=== PATIENT | female | born 1975 | race Caucasian/White ===

== ENCOUNTER → 2017-07-20 | Outpatient (CLI) | payer OTHER | END | disposition home or self-care (01) | LOC: KCIC MAMMO 09:57 | DX: Z12.31 Encounter for screening mammogram for malignant neoplasm of breast (principal) | CPT/HCPCS: 77063; 77067 ==

== ENCOUNTER → 2017-07-27 | Outpatient (CLI) | payer OTHER | END | disposition home or self-care (01) | LOC: KCIC US 12:53 | DX: N63.10 Unspecified lump in the right breast, unspecified quadrant (principal) | CPT/HCPCS: 76641 ==

== ENCOUNTER → 2017-11-28 | Outpatient (CLI) | payer OTHER ==
--- NOTE | 2017-11-28 11:35 | KCIC ---
PQRS Compliance Statement: One or more of the following individualized dose reduction techniques were utilized for this examination: 1. Automated exposure control 2. Adjustment of the mA and/or kV according to patient size 3. Use of iterative reconstruction technique CT abdomen/pelvis without contrast 11/28/2017 10:30 AM INDICATION: Generalized abdominal pain, endometriosis COMPARISON: None available TECHNIQUE: Multiple axial CT images of the abdomen and pelvis were obtained without intravenous contrast. Coronal and sagittal reformats are provided. FINDINGS: Visualized portions of the lung bases are clear. Heart size is within normal limits. Evaluation of the solid abdominal viscera is limited by lack of intravenous contrast. No suspicious hepatic masses are identified. Calcifications within the liver and spleen are likely sequela prior granulomatous exposure. Spleen, bilateral adrenal glands, and pancreas are otherwise normal normal in appearance. Gallbladder is present without adjacent inflammatory changes. The abdominal aorta is normal in course and caliber. There are no pathologically enlarged lymph nodes in the abdomen and pelvis. There is no abdominal free fluid. There is no free intraperitoneal air. There may be a 2 mm calculus at the left ureterovesicular junction (series 2, image 70). There is no hydronephrosis. No calculi are identified within the kidneys. The cecum is identified deep within the pelvis. The appendix is not definitively visualized. No pericecal inflammatory changes are identified. There is a moderate amount of stool identified throughout the colon. No evidence for bowel obstruction or inflammation. No suspicious adnexal masses visualized. Follicular changes are identified in the right adnexa with a dominant follicle measuring 2.2 cm. No suspicious osseous abnormalities visualized. Urinary bladder is predominantly decompressed. Gas is suspected within the endometrium, nonspecific. IMPRESSION: 1. There may be a 2 mm calculus at the left ureterovesicular junction. There is no associated hydroureteronephrosis. Alternatively, this may represent a phlebolith as there are additional phleboliths present. Correlate with patient's symptoms. 2. Appendix is not definitively visualized with the cecum residing deep within the pelvis. No adjacent inflammatory changes are present. No evidence for bowel obstruction or inflammation. 3. Dominant follicle is noted in the right adnexa measuring 2.2 cm. 4. Gas is suspected within the endometrium which is nonspecific. Electronically signed by: Gena Gordillo MD (11/28/2017 11:31 AM) [id number]
== END | disposition home or self-care (01) ==
LOC: KCIC CT 10:13
PROVIDERS: ATTEND Family Medicine
DX: N80.8 Other endometriosis (principal)
CPT/HCPCS: 74176

== ENCOUNTER → 2018-05-29 | Outpatient (CLI) | payer OTHER ==
[~2018-05-29] MED LIST: GADOBUTROL 7.5 MMOL/7.5 ML VIAL IV ONE
--- NOTE | 2018-05-29 10:21 | RAD ---
MRI of the Brain without and with Contrast 05/29/2018 Clinical History: Worsening neuropathy in hands and feet since the last year. Technique: Unenhanced T1-weighted and FLAIR sagittal and axial and gradient echo, T2-weighted and diffusion-weighted axial images of the brain were obtained. After the intravenous administration of 4.5 cc of Gadavist, enhanced T1-weighted axial and coronal images of the brain were obtained. Findings: The ventricles and sulci are within normal limits in size and configuration. Patchy and several small focal areas of abnormally increased signal intensity are seen within the periventricular and subcortical white matter of both cerebral hemispheres on the FLAIR and T2-weighted images. These measure 2 mm to 5 mm in size. Their MRI appearance is nonspecific. They are felt to most likely reflect areas of minimal small vessel ischemic disease. They can be seen in patients with a history of migraine headaches. Conceivably they could be seen in the setting of a demyelinating disorder. No acute parenchymal abnormality is seen. No abnormal area of contrast enhancement is seen. No extra-axial fluid collection is noted. There is no MRI evidence of acute ischemia/infarction. The paranasal sinuses are essentially clear. There are minimal mastoid effusions, right greater than left. Normal flow voids are seen within the major vascular structures surrounding the brain parenchyma. Impression: No acute parenchymal abnormality is seen. Electronically signed by: Ilya Doty MD (05/29/2018 10:16 AM) [email or web address]
== END | disposition home or self-care (01) ==
LOC: MRI 08:40
PROVIDERS: ATTEND Psychiatry & Neurology Neurology
DX: G35 Multiple sclerosis (principal)
CPT/HCPCS: 70553; A9585

== ENCOUNTER → 2018-07-04 | Outpatient (CLI) | payer OTHER ==
[~2018-07-04] MED LIST changes: +CONTRAST GIVEN. MC PRN; -GADOBUTROL 7.5 MMOL/7.5 ML VIAL IV ONE; +IOHEXOL 300 MG/ML 100ML VIAL. IV ONE
--- NOTE | 2018-07-04 12:35 | RAD ---
EXAM: Abdomen and pelvis CT urogram with and without intravenous contrast. HISTORY: Nephrolithiasis. TECHNIQUE: Computed tomographic images of the abdomen and pelvis were obtained prior to and following the administration of 75 cc Omnipaque 300 intravenous contrast. Multiplanar reformatting was performed. *One or more of the following individualized dose reduction techniques were utilized for this examination: 1. Automated exposure control. 2. Adjustment of the mA and/or kV according to patient size. 3. Use of iterative reconstruction technique. COMPARISON: 11/28/2017. FINDINGS: Evaluation of the lower thorax is unremarkable. There is no suspicious hepatic lesion. The gallbladder, pancreas and and right adrenal gland are unremarkable. There is slight thickening of the medial limb of the left adrenal gland, without a discrete nodule. There are granulomas within an otherwise unremarkable spleen. The stomach is distended with recently ingested fluid. There is no evidence of nephrolithiasis there is no evidence of obstructive uropathy. There is a small calcific lesion along the course of the right distal ureter. The ureter is not opacified in this location. However, the absence of ureteral dilatation suggests that this is a phlebolith rather than distal ureteral stone. No solid or cystic renal lesion is seen. No urothelial lesion is seen. The bladder is unremarkable. No abnormally thickened or dilated loop of bowel is seen. There is moderate colonic stool. There is no lymphadenopathy. There is no suspicious osseous lesion. IMPRESSION: 1. No evidence of nephroureterolithiasis, obstructive uropathy or intrinsic urothelial lesion. 2. No acute abdominal or pelvic finding. Electronically signed by: Diana Malcolm MD (07/04/2018 12:32 PM) [email or web address]
== END | disposition home or self-care (01) ==
LOC: CT 09:29
PROVIDERS: ATTEND Urology
DX: N28.89 Other specified disorders of kidney and ureter (principal); Z87.442 Personal history of urinary calculi
CPT/HCPCS: 74178; Q9967

== ENCOUNTER → 2019-04-30 | Outpatient (CLI) | payer MEDICAID, OTHER ==
--- NOTE | 2019-04-30 07:59 | RAD ---
EXAM: RIGHT UPPER QUADRANT ULTRASOUND. HISTORY: Right upper quadrant pain. COMPARISON: None. FINDINGS: Sonographic evaluation of the right upper quadrant was performed. The liver appears normal in parenchymal echotexture. There are no focal lesions. The gallbladder is unremarkable without evidence of stones, wall thickening or pericholecystic fluid. There is no sonographic Gastelum sign. The common duct measures 3 mm. The visualized portions of the head and body of the pancreas reveal no abnormality. The right kidney measures 9.6 cm. Cortical thickness and echogenicity are preserved. There is no hydronephrosis. The visualized portions of the abdominal aorta and inferior vena cava are grossly patent and normal in caliber. IMPRESSION: 1. Unremarkable examination of the right upper quadrant. Electronically signed by: Michelle Martin MD (04/30/2019 7:56 AM) [id number]
== END | disposition home or self-care (01) ==
LOC: US 06:47
PROVIDERS: ATTEND Family Medicine
DX: R10.11 Right upper quadrant pain (principal)
CPT/HCPCS: 76705

== ENCOUNTER 2020-03-16 23:47 | Emergency (ER) | payer OTHER, MEDICAID ==
[~2020-03-16] VITALS: Ht 154.9 cm; Wt 52.0 kg
[2020-03-17] MEDS ORDERED: DEXAMETHASONE SOD PHOS 4 MG/ML VIAL IVP ONE (01:30)
[2020-03-17] MEDS ORDERED: IV NORMAL SALINE 1000ML BAG 1,000 ML IV ONE (01:30)
[2020-03-17 01:35] LABS: BASO % 1 % (0-3); EOS % 1 % (0-3); HEMATOCRIT 36.4 % (36.0-47.0); HEMOGLOBIN 12.6 g/dL (12.0-15.5); LYMPH # 1.7 x10^3/uL (1.0-4.8); LYMPH % 31 % (24-48); MEAN CORPUSCULAR HEMOGLOBIN 33 pg (25-35); MEAN CORPUSCULAR HGB CONC 35 g/dL (31-37); MEAN CORPUSCULAR VOLUME 95 fL (79-100); MONO # 0.5 x10^3/uL (0.0-1.1); MONO % 9 % (0-9); NEUT # 3.3 x10^3/uL (1.8-7.7); NEUT % 59 % (31-73); PLATELET COUNT 326 x10^3/uL (140-400); RED BLOOD COUNT 3.83 x10^6/uL (3.50-5.40); RED CELL DISTRIBUTION WIDTH 13.7 % (11.5-14.5); WHITE BLOOD COUNT 5.5 x10^3/uL (4.0-11.0)
[2020-03-17 01:48] LABS: CALCIUM 8.7 mg/dL (8.5-10.1); CREATININE 0.8 mg/dL (0.6-1.0); GFR 78.7; POTASSIUM 3.3 mmol/L (3.5-5.1)
[2020-03-17 01:54] LABS: ALBUMIN 3.5 g/dL (3.4-5.0); ALBUMIN/GLOBULIN RATIO 1.1 (1.0-1.7); C-REACTIVE PROTEIN 1.3 mg/L (0-3.3); TOTAL BILIRUBIN 0.2 mg/dL (0.2-1.0); TOTAL PROTEIN 6.8 g/dL (6.4-8.2)
--- NOTE | 2020-03-17 03:49 | ED.ADGEN ---
Past Medical History Past Medical History: Asthma Past Surgical History: Hysterectomy Smoking Status: Never Smoker Alcohol Use: None General Adult EDM: Chief Complaint: MULTIPLE COMPLAINTS HPI: HPI: Patient is a 44-year-old female past medical history of asthma who presents to the emergency room with multiple complaints. Patient states that 2 weeks ago she had a sinus infection at that time was treated with antibiotics. She feels like she never really got better. She has developed cough and significant shortness of breath over the last couple of days. She tried to use an inhaler prior to arrival without any relief. It is been quite sometime since she has had an asthma exacerbation. She denies any known fevers. She does not have any other URI symptoms. She denies any abdominal pain, nausea, vomiting, change in smell, and change in taste. Review of Systems: Review of Systems: Complete ROS is negative unless otherwise documented in HPI Current Medications: Current Medications Medications (Trade) Dose Ordered Sig/Hollie Start Time Stop Time Status Last Admin Dose Admin Albuterol/ Ipratropium (Duoneb) 3 ml 1X ONCE 03/17/20 04:30 03/17/20 04:31 DC 03/17/20 04:31 3 ML Dexamethasone Sodium Phosphate (Decadron) 10 mg 1X ONCE 03/17/20 01:30 03/17/20 01:31 DC 03/17/20 01:37 10 MG Ondansetron HCl (Zofran) 4 mg 1X ONCE 03/17/20 04:30 03/17/20 04:31 DC 03/17/20 04:25 4 MG Sodium Chloride 1,000 ml @ 1,000 mls/hr 1X ONCE 03/17/20 01:30 03/17/20 02:29 DC 03/17/20 01:37 1,000 MLS/HR Allergies: Allergies: Allergies Coded Allergies Type Severity Reaction Last Updated Verified No Known Drug Allergies 05/29/18 No Physical Exam: PE: General: Awake, alert, NAD. Well Nourished, well hydrated. Cooperative HEENT: Atraumatic, EOMI, PERRL, airway patent, moist oral mucosa Neck: Supple, trachea midline Respiratory: Mild tachypnea, decreased breath sounds, minimal crackles at right lower base CV: Tachycardic, no murmur, cap refill <2 GI: Soft, nondistended, nontender, no masses MSK: No obvious deformities Skin: Warm, dry, intact Neuro: A&O x3, speech NL, sensory and motor grossly intact, no focal deficits Psych: Normal affect, normal mood, not suicidal or homicidal Current Patient Data: Labs: Laboratory Tests Test 03/17/20 01:27 White Blood Count 5.5 x10^3/uL (4.0-11.0) Red Blood Count 3.83 x10^6/uL (3.50-5.40) Hemoglobin 12.6 g/dL (12.0-15.5) Hematocrit 36.4 % (36.0-47.0) Mean Corpuscular Volume 95 fL (79-100) Mean Corpuscular Hemoglobin 33 pg (25-35) Mean Corpuscular Hemoglobin Concent 35 g/dL (31-37) Red Cell Distribution Width 13.7 % (11.5-14.5) Platelet Count 326 x10^3/uL (140-400) Neutrophils (%) (Auto) 59 % (31-73) Lymphocytes (%) (Auto) 31 % (24-48) Monocytes (%) (Auto) 9 % (0-9) Eosinophils (%) (Auto) 1 % (0-3) Basophils (%) (Auto) 1 % (0-3) Neutrophils # (Auto) 3.3 x10^3/uL (1.8-7.7) Lymphocytes # (Auto) 1.7 x10^3/uL (1.0-4.8) Monocytes # (Auto) 0.5 x10^3/uL (0.0-1.1) Eosinophils # (Auto) 0.0 x10^3/uL (0.0-0.7) Basophils # (Auto) 0.0 x10^3/uL (0.0-0.2) D-Dimer (Blanquita) 0.37 ug/mlFEU (0.00-0.50) Sodium Level 141 mmol/L (136-145) Potassium Level 3.3 mmol/L (3.5-5.1) L Chloride Level 104 mmol/L (98-107) Carbon Dioxide Level 25 mmol/L (21-32) Anion Gap 12 (6-14) Blood Urea Nitrogen 8 mg/dL (7-20) Creatinine 0.8 mg/dL (0.6-1.0) Estimated GFR (Cockcroft-Gault) 78.7 BUN/Creatinine Ratio 10 (6-20) Glucose Level 99 mg/dL (70-99) Calcium Level 8.7 mg/dL (8.5-10.1) Total Bilirubin 0.2 mg/dL (0.2-1.0) Aspartate Amino Transferase (AST) 23 U/L (15-37) Alanine Aminotransferase (ALT) 23 U/L (14-59) Alkaline Phosphatase 42 U/L (46-116) L Lactate Dehydrogenase 165 U/L (81-234) Creatine Kinase 137 U/L (26-192) Troponin I Quantitative < 0.017 ng/mL (0.000-0.055) C-Reactive Protein, Quantitative 1.3 mg/L (0-3.3) CZ-Smy-R-Type Natriuretic Peptide 40 pg/mL (0-124) Total Protein 6.8 g/dL (6.4-8.2) Albumin 3.5 g/dL (3.4-5.0) Albumin/Globulin Ratio 1.1 (1.0-1.7) Laboratory Tests 03/17/20 01:27 Laboratory Tests 03/17/20 01:27 Vital Signs: Vital Signs Date Time Temp Pulse Resp B/P (MAP) Pulse Ox O2 Delivery O2 Flow Rate FiO2 03/17/20 04:31 99 Room Air 03/17/20 02:25 122 24 122/66 (84) 03/17/20 00:25 98.6 98.6 EKG: EKG: [] Heart Score: Risk Factors: Risk Factors: DM, Current or recent (<one month) smoker, HTN, HLP, family history of CAD, obesity. Risk Scores: Score 0 - 3: 2.5% MACE over next 6 weeks - Discharge Home Score 4 - 6: 20.3% MACE over next 6 weeks - Admit for Clinical Observation Score 7 - 10: 72.7% MACE over next 6 weeks - Early Invasive Strategies Radiology/Procedures: Radiology/Procedures: [] Course & Med Decision Making: Course & Med Decision Making Pertinent Labs and Imaging studies reviewed. (See chart for details) Patient is 44-year-old female who presents to the emergency room complaining of cough and shortness of breath. She does have a history of asthma. She will be treated with Decadron and duo nebs. Patient is tachycardic upon arrival. She will be given a liter of fluids. Lab work was ordered to risk stratify her for novel coronavirus 19. Lab work is not significantly suggestive of coronavirus 19. Work-up is unremarkable. Patient will be started on steroids. We discussed quarantine at home and strict return precautions. Patient's test results and vitals while in the ED were fully reviewed and discussed with the patient. Patient is stable and at this time does not need admission to the hospital. We have discussed strict return precautions and the importance of following up with their Primary Care Physician. Patient stated understanding and was given an opportunity to ask any questions. Patient is in agreement with plan. Dragon Disclaimer: Dragon Disclaimer: This electronic medical record was generated, in whole or in part, using a voice recognition dictation system. Departure Departure Impression: Primary Impression: Shortness of breath Additional Impression: Asthma exacerbation Disposition: 01 DC HOME SELF CARE/HOMELESS Condition: STABLE Referrals: SHWETA TAY MD (PCP) Patient Instructions: Asthma, Adult Scripts Levofloxacin (LEVOFLOXACIN) 500 Mg Tablet 1 TAB PO DAILY, #7 TAB Prov: STEVIE RAMON MD 03/17/20 Prednisone (PREDNISONE) 50 Mg Tablet 1 TAB PO DAILY, #5 TAB Prov: STEVIE RAMON MD 03/17/20 Problem Qualifiers STEVIE RAMON MD Mar 17, 2020 03:49
[2020-03-17] MEDS ORDERED: ONDANSETRON PF 4 MG/2 ML VIAL. IVP ONE (04:30)
[2020-03-17] MEDS ORDERED: IPRATRPIUM/ALBUTEROL 0.5/2.5MG 3 ML NEBU. NEB ONE (04:30)
[2020-03-17 05:01] VITALS: BP 126/68
[2020-03-17] MEDS ORDERED: LEVO500T8 PO (05:42)
[2020-03-17] MEDS ORDERED: PRED50TA PO (05:42)
--- NOTE | 2020-03-17 06:34 | RAD ---
EXAMINATION: CHEST AP ONLY CLINICAL HISTORY: Cough, possible Covid EXAM DATE/TIME: 03/17/2020 12:55 AM COMPARISON: None FINDINGS: Lines, Tubes, and Devices: None. Cardiomediastinal Silhouette: Within normal limits. Lungs and Pleura: No evidence of focal airspace consolidation or pleural effusion. Pulmonary vasculature unremarkable. Bones and Soft Tissues: No acute osseous abnormality. IMPRESSION: No evidence of acute cardiopulmonary abnormality. Electronically signed by: Antonio Barragan DO (03/17/2020 6:31 AM) [facility]
--- NOTE | 2020-03-17 11:47 | EKG ---
[facility] [address] [place] [address] Test Date: 2020-03-17 Test Time: 01:32:21 Pat Name: NADYA MCCARTNEY Department: Room: Gender: F Sod Farmer: : 1975 Requested By: STEVIE RAMON Order Number: [id number] Reading MD: Frank Cantu MD Measurements Intervals Pearce Rate: 121 P: -12 AL: 94 QRS: 18 QRSD: 78 T: 4 QT: 360 QTc: 514 Interpretive Statements SINUS TACHYCARDIA pvc's Electronically Signed On 03-18-2020 11:03:49 RECYCLING COLLECTIONS DRIVER by Frank Cantu MD
--- NOTE | 2020-03-19 09:35 | NUR ---
IP: Informed pt of negative COVID test. Pt verbalized understanding.
== END 2020-03-17 06:15 | disposition home or self-care (01) ==
LOC: ER 23:47
DX: J45.901 Unspecified asthma with (acute) exacerbation (principal); Z20.828 Contact with and (suspected) exposure to other viral communicable diseases; R06.02 Shortness of breath; R05 Cough; Z90.710 Acquired absence of both cervix and uterus
CPT/HCPCS: 36415; 71045; 80053; 82550; 83615; 83880; 84484; 85025; 85379; 86140; 93005; 94640; 96361; 96374; 96375; 99285; J1100; J2405; J7030; U0003

== ENCOUNTER → 2020-07-08 | Outpatient (CLI) | payer OTHER, MEDICAID ==
[~2020-07-08] MED LIST changes: -CONTRAST GIVEN. MC PRN; -IOHEXOL 300 MG/ML 100ML VIAL. IV ONE; +LEVO500T8 PO; +PRED50TA PO
--- NOTE | 2020-07-08 11:33 | KCIC ---
EXAM: Bilateral digital screening mammogram with tomosynthesis. HISTORY: 45-year-old female presents for screening mammography. TECHNIQUE: Full-field digital craniocaudal and mediolateral oblique 2D and 3D tomosynthesis images of both breasts are obtained for evaluation. Computer aided detection was applied. COMPARISON: 07/20/2017 BREAST PARENCHYMAL DENSITY: Level D - Extremely dense. FINDINGS: There is no new suspicious mass, microcalcification or region of architectural distortion. There are stable areas of nodularity within both breasts. IMPRESSION: BI-RADS Category 2: Benign finding(s). RECOMMENDATION: Annual mammography is recommended. If your mammogram demonstrates that you have dense breast tissue, which could hide abnormalities, and if you have other risk factors for breast cancer that have been identified, you might benefit from s upplemental screening tests that may be suggested by your ordering physician. Dense breast tissue, i n and of itself, is a relatively common condition. This information is not provided to cause undue c oncern, but rather to raise your awareness and to promote discussion with your physician regarding th e presence of other risk factors, in addition to dense breast tissue. A report of your mammography re sults will be sent to you and your physician. You should contact your physician if you have any ques tions or concerns regarding this report. Mammography is a sensitive method for finding small breast cancers, but it does not detect them all a nd is not a substitute for careful clinical examination. A negative mammogram does not negate a clin ically suspicious finding and should not result in delay in biopsying a clinically suspicious abnorma lity. PQRS compliance statement - Patient information was entered into a reminder system with a target due date for the next mammogram. "Our facility is accredited by the [employer] Mammography Program." Electronically signed by: Diana Malcolm MD (07/08/2020 11:31 AM) [email or web address]
== END ==
LOC: KCIC MAMMO 10:52
PROVIDERS: ATTEND Internal Medicine
DX: Z12.31 Encounter for screening mammogram for malignant neoplasm of breast (principal)
CPT/HCPCS: 77063; 77067